=== PATIENT | female | born 1975 | race Caucasian/White ===

== ENCOUNTER 2017-07-07 14:59 | Emergency (ER) | payer MEDICAID ==
[2017-07-07 17:57] LABS: URINE PH (Dip) POC 5.5 (5.0-8.5)
[2017-07-07 17:57] LABS: URINE BLOOD (Dip) POC Negative (NEGATIVE); URINE GLUCOSE (Dip) POC Negative (NEGATIVE); URINE KETONES (Dip) POC Negative (NEGATIVE); URINE LEUKOCYTE EST (Dip) POC 1+ (NEGATIVE); URINE NITRITE (Dip) POC Negative (NEGATIVE); URINE TOTAL PROTEIN POC Negative (NEGATIVE)
[2017-07-07] MEDS ORDERED: LIDOCAINE 1% (MPF) 30 ML INJ INJ (18:00)
[2017-07-07] MEDS: LIDOCAINE 1%/EPI 30 ML INJ INJ (18:00)
== END 2017-07-07 19:25 | disposition home or self-care (01) ==
LOC: FTE 14:59
DX: N76.4 Abscess of vulva (principal)
CPT/HCPCS: 56405; 81003; 99284-25